=== PATIENT | male | born 1990 | race Caucasian/White ===

== ENCOUNTER 2017-06-07 23:52 | Emergency (ER) | payer SELFPAY ==
[~2017-06-07] VITALS: Ht 180.3 cm; Wt 70.3 kg
[2017-06-08 00:17] VITALS: BP_SYST 112
[2017-06-08] MEDS ORDERED: KETOROLAC TROMETHAMINE 60 MG/2 ML VIAL IM ONE (01:30)
[2017-06-08] MEDS ORDERED: HYDROmorphone 2 MG/ML VIAL IM ONE (02:45)
[2017-06-08 03:23] VITALS: BP_SYST 114
== END 2017-06-08 03:23 | disposition home or self-care (01) ==
LOC: SED 23:52
DX: S92.001A Unspecified fracture of right calcaneus, initial encounter for closed fracture (principal); X58.XXXA Exposure to other specified factors, initial encounter; Y93.39 Activity, other involving climbing, rappelling and jumping off; Y92.89 Other specified places as the place of occurrence of the external cause; Y99.8 Other external cause status
CPT/HCPCS: 29515; 73610; 73620; 96372; 99284; J1170; J1885